=== PATIENT | male | born 1960 | race Caucasian/White ===

== ENCOUNTER 2019-05-28 04:24 | Inpatient (IN) | payer OTHER ==
[2019-05-28] VITALS (51 sets, daily range): BP systolic 94–161; BP diastolic 49–98
[~2019-05-28] VITALS: Ht 177.8 cm; Wt 104.8 kg
[~2019-05-28 04:24] MED LIST: ALDACTONE25 MG PO; ASPIR 8181 M1 PO; CLONIDINE0.1 PO; GABAPENTIN 100100 MG PO; LANTUS SOL100 UNIT/1 SQ; LEVEMIR SUBQ; LIPITOR40 MG PO; NORVASC5 MG PO; NOVOLOG100 UNIT/1 SUBQ; PRINIVIL20 MG PO; TENORMIN25 MG PO
[2019-05-28 04:59] LABS: PCO2 27.7 mmHg (35.0-45.0); pH 7.352 (7.340-7.450)
[2019-05-28 05:01] LABS: PO2 58.9 mmHg (75.0-100.0)
[2019-05-28 05:19] LABS: HEMATOCRIT 36.2 % (42.0-52.0); HEMOGLOBIN 12.2 gm/dL (14.0-18.0); MCH 25.9 pg (26.0-34.0); MCHC 33.7 g/dL (28.0-37.0); MCV 76.8 fL (80.0-100.0); MPV 8.1 fl. (7.2-11.1); NUCLEATED RBCS 0 /100WBC; PLATELET COUNT* 420 thou/uL (150-400); RBC 4.72 mil/uL (4.50-6.00); RDW-CV 14.7 % (10.5-14.5); WBC 28.9 thou/uL (4.0-11.0)
[2019-05-28 05:45] LABS: INR 1.2; PROTIME 11.8 Seconds (9.20-11.50)
[2019-05-28] MEDS ORDERED: GVOKE SYRI1 MG/0.2 M SUBQ (05:45)
[2019-05-28] MEDS ORDERED: FUROSEMIDE 40 M40 MG PO (05:46)
[2019-05-28] MEDS ORDERED: HUMALOG100 UNIT/1 SUBQ (05:46)
[2019-05-28] MEDS ORDERED: PROCARDIA XL60 MG PO (05:47)
[2019-05-28] MEDS ORDERED: LANTUS SUBQ (05:47)
[2019-05-28] MEDS ORDERED: PROTONIX40 M2 PO (05:48)
[2019-05-28] MEDS ORDERED: HYDRALAZINE 5050 MG PO (05:48)
[2019-05-28] MEDS ORDERED: MIRALAX119 GM PO (05:49)
[2019-05-28] MEDS ORDERED: COREG25 M1 PO (05:49)
[2019-05-28] MEDS ORDERED: MELATONIN3 M1 PO (05:50)
[2019-05-28] MEDS ORDERED: GLUCOSE GEL38 GM PO (05:50)
[2019-05-28 05:51] LABS: CALCIUM 8.8 mg/dL (8.5-10.1); CREATININE 1.9 mg/dL (0.6-1.3); POTASSIUM 3.7 mmol/L (3.5-5.1)
[2019-05-28 06:02] LABS: ALBUMIN 3.2 g/dL (3.4-5.0); TOTAL BILIRUBIN 0.4 mg/dL (<0.1-1.0); TOTAL PROTEIN 7.2 g/dL (6.4-8.2)
[2019-05-28 06:35] LABS: URINE BILIRUBIN NEGATIVE (Negative); URINE BLOOD NEGATIVE (Negative); URINE CLARITY CLEAR; URINE COLOR YELLOW; URINE GLUCOSE-RANDOM NEGATIVE (Negative); URINE KETONES NEGATIVE (Negative); URINE LEUKOCYTES-REFLEX NEGATIVE (Negative); URINE NITRITE-REFLEX NEGATIVE (Negative); URINE PROTEIN TRACE (Negative); URINE UROBILINOGEN 0.2 E.U./dl (0.2-1.0)
[2019-05-28 06:44] LABS: ABSOLUTE NEUTROPHILS 24.9 thou/uL (1.6-8.1)
[2019-05-28 06:45] LABS: PLATELET ESTIMATE INCREASED
[2019-05-28 06:48] LABS: BE -5.3 mmol/L (-2 to +3); PCO2 36.9 mmHg (35.0-45.0); pH 7.346 (7.340-7.450)
[2019-05-28 06:51] LABS: PO2 58.4 mmHg (75.0-100.0)
[2019-05-28 07:20] LABS: INFLUENZA A ANTIGEN Negative (Negative); INFLUENZA B ANTIGEN Negative (Negative)
[2019-05-28 08:47] LABS: AMP/METHAMP Negative (Negative); BARBITURATES Negative (Negative); BENZODIAZEPINES POSITIVE (Negative); COCAINE Negative (Negative); METHADONE Negative (Negative); OPIATES Negative (Negative); PCP Negative (Negative); THC Negative (Negative)
--- NOTE | 2019-05-28 12:33 | 2DMMODE ---
[place] [id number] 2 D/M-MODE ECHOCARDIOGRAM Name: MAGDALENAMACHELLE RAY Room: [address] [place] [facility] [place] [id number] Admission: 05/28/19 Attend Phys: Merlin Miranda, Discharge: Date of : 60 Date of Service: 05/28/19 1232 Report #: [id number] THIS REPORT FOR: //name// APPROVED REPORT Study performed: 05/28/2019 11:40:28 EXAM: Comprehensive 2D, Doppler, and color-flow Echocardiogram Patient Location: In-Patient Room #: 003 Status: routine BSA: 2.13 HR: 72 bpm BP: 149/73 mmHg Rhythm: NSR Other Information Study Quality: Excellent Indications Dyspnea 2D Dimensions IVSd: 17.76 (7-11mm) LVOT Diam: 21.17 (18-24mm) LVDd: 49.66 mm PWd: 15.25 (7-11mm) Ascending Ao: 36.17 (22-36mm) LVDs: 32.26 (25-40mm) Aortic Root: 34.09 mm Volumes Left Atrial Volume (Systole) LA ESV Index: 31.40 mL/m2 Aortic Valve AoV Peak Cristino.: 2.05 m/s AO Peak Gr.: 16.86 mmHg LVOT Max P.48 mmHg AO Mean Gr.: 7.94 mmHg LVOT Mean P.25 mmHg LVOT Max V: 1.69 m/s AO V2 VTI: 34.03 cm LVOT Mean V: 1.06 m/s LOVE (VTI): 3.10 cm2 LVOT V1 VTI: 29.97 cm Mitral Valve E/A Ratio: 1.22 MV Decel. Time: 215.48 ms MV E Max Cristino.: 1.03 m/[place] [id number] 2 D/M-MODE ECHOCARDIOGRAM Name: MACHELLE NICHOLS Room: [address] IN ..#: [id number] Admission: 05/28/19 Attend Phys: Merlin Miranda, Discharge: Date of : 60 Date of Service: 05/28/19 1232 Report #: [id number] MV PHT: 62.49 ms MVA (PHT): 3.52 cm2 TDI E/Lateral E': 9.36 E/Medial E': 9.36 Medial E' Cristino.: 0.11 m/s Lateral E' Cristino.: 0.11 m/s Pulmonary Valve PV Peak Cristino.: 1.38 m/s PV Peak Gr.: 7.56 mmHg Tricuspid Valve RAP Estimate: 5.00 mmHg TR Peak Gr.: 23.50 mmHg RVSP: 28.00 mmHg PA Pressure: 28.00 mmHg Left Ventricle The left ventricle is normal size. There is normal LV segmental wall motion. Mild concentric left ventricular hypertrophy. Left ventricular systolic function is normal. The left ventricular ejection fraction is within the normal range. LVEF is 65%. Right Ventricle The right ventricle is normal size. The right ventricular systolic function is normal. Atria Left atrium is mildly dilated. The right atrium size is normal. Aortic Valve Mild aortic valve sclerosis. No aortic regurgitation is present. There is no aortic valvular stenosis. Mitral Valve The mitral valve is normal in structure. Trace mitral regurgitation. No evidence of mitral valve stenosis. Tricuspid Valve The tricuspid valve is normal in structure. Mild tricuspid regurgitation. estimated pa pressure 30 mm Hg Pulmonic Valve The pulmonary valve is normal in structure. There is no pulmonic [place] [id number] 2 D/M-MODE ECHOCARDIOGRAM Name: SAVANNAHMACHELLE MCCABE HOWIE Room: [address] [place] [facility] [place] [id number] Admission: 05/28/19 Attend Phys: Merlin Miranda, Discharge: Date of : 60 Date of Service: 05/28/19 1232 Report #: [id number] Great Vessels The aortic root is normal in size. IVC is normal in size and collapses >50% with inspiration. Pericardium Trace pericardial effusion. <Conclusion> Mild concentric left ventricular hypertrophy. LVEF is 65%. Left atrium is mildly dilated. Mild aortic valve sclerosis. Mild tricuspid regurgitation. estimated pa pressure 30 mm Hg <ELECTRONICALLY SIGNED> By: Steve Glaser MD, FACC 05/28/19 1232 1232 123 Steve Glaser MD, FACC /INF
[2019-05-28 13:24] LABS: BE -7.6 mmol/L (-2 to +3); PCO2 24.7 mmHg (35.0-45.0); PO2 101.9 mmHg (75.0-100.0); pH 7.414 (7.340-7.450)
[2019-05-28 14:07] LABS: CALCIUM 8.2 mg/dL (8.5-10.1); CREATININE 1.8 mg/dL (0.6-1.3); POTASSIUM 3.3 mmol/L (3.5-5.1)
--- NOTE | 2019-05-28 17:10 | NUR ---
RECEIVED REPORT FROM ED AND ASSUMED CARE OF PT @ 4346.PT IS INTUBATED PER ORDERED SETTINGS AND SEDATED PER TITRATION.VSS.PT SCREENED SEPSIS POSTIVE-PROTOCOL FOLLOWED.NO APPARENT PAIN.RIGHT AC IV INFILTRATED.RIGHT IJ CENTRAL LINE PLACED BY PULMONARY DOCTOR WITH XRAY CONFIRMATION.IV ANTIBIOTICS GIVEN.MALAVE SECURE AND PATENT WITH ADEQUATE OUTPUT.Q2 HOUR POSITION CHANGES COMPELTED.UA SENT.MRSA SWAB COLLECTED.LOWER EXTERMITY US COMPELTED.ECHO COMPLETED.POTASSIUM AND MAGNESIUM REPLACED.WILL CONTINUE TO MONITOR FOR DURATION OF SHIFT.
[2019-05-29] VITALS (30 sets, daily range): BP systolic 119–165; BP diastolic 50–75
[2019-05-29 01:55] LABS: BE -6.6 mmol/L (-2 to +3); PCO2 26.2 mmHg (35.0-45.0); pH 7.427 (7.340-7.450)
[2019-05-29 02:00] LABS: PO2 170.3 mmHg (75.0-100.0)
[2019-05-29 04:16] LABS: HEMATOCRIT 25.8 % (42.0-52.0); MCH 26.2 pg (26.0-34.0); MCHC 33.8 g/dL (28.0-37.0); MCV 77.4 fL (80.0-100.0); MPV 8.1 fl. (7.2-11.1); RBC 3.33 mil/uL (4.50-6.00); RDW-CV 14.5 % (10.5-14.5); WBC 14.8 thou/uL (4.0-11.0)
[2019-05-29 04:26] LABS: HEMOGLOBIN 8.7 gm/dL (14.0-18.0)
[2019-05-29 04:36] LABS: ALBUMIN 2.2 g/dL (3.4-5.0); CREATININE 2.1 mg/dL (0.6-1.3); MAGNESIUM 2.5 mg/dL (1.8-2.4); POTASSIUM 3.7 mmol/L (3.5-5.1); TOTAL BILIRUBIN 0.2 mg/dL (<0.1-1.0)
--- NOTE | 2019-05-29 07:19 | NUR ---
RECEIVED REPORT AND ASSUMED CARE AT 1900. ASSESSMENT COMPLETED CHARTED. BED LOCKED IN LOWEST POSITION, BED ALARM ON. POSITION CHANGED EVERY TWO HOURS, HEELS OFF LOADED. HOURLY ROUNDING COMPLETED AND ALL NEEDS MET
--- NOTE | 2019-05-29 11:00 | NUR ---
PT.ON VENTILATOR. NO FAMILY PRESENT AT THIS TIME. 1500-CALLED Sharmin BLAND. LISTED EMERGENCY CONTACT ON FACE SHEET. SHE SAID SHE RECENTLY HAD A TOE AMPUTATED. PT.'S SON,JAMES, TOOK PT.TO HIS HOUSE IN [place], [place] ,WHEN RELEASED SUNDAY FROM [facility], SINCE SHE CAN'T TAKE CARE OF HIM AT THIS TIME. PT.HAS A WC AND WALKER. DOES NOT HAVE TO USE WC AT THIS TIME. IN NOV. HAD A CVA, WAS ON THE VENT AND IN RENAL FAILURE. SPENT ABOUT 20 DAYS IN HOSPITAL IN [place], THEN SENT TO SNF FOR REHAB. PT.IS LEGALLY BLIND. HAS DM. SHE SAID SHE DID ALOT FOR PT. SHE FED HIM,DRESSED HIM,DROVE HIM PLACES. SHE SAID HE CAN FEED HIMSELF BUT WITH HIS BLINDNESS HE MAKES A REAL MESS. HE CAN GET IN SHOWER AND OUT BY SELF BUT NEEDS HELP WITH DRESSING. SHE FEELS HE MAY NEED TO GO BACK TO SNF AT DISCHARGE IF SON CANNOT TAKE CARE OF HIM. CM WILL MAKE CONTACT WITH SON,TO DISCUSS.
[2019-05-29 11:46] LABS: BE -3.4 mmol/L (-2 to +3); PO2 94.1 mmHg (75.0-100.0); pH 7.423 (7.340-7.450)
--- NOTE | 2019-05-29 12:51 | EKG ---
[place] [address] ELECTROCARDIOGRAM REPORT Name: MACHELLE NICHOLS Room: [address] ADM IN M.R.#: [id number] Admission: 05/28/19 Attend Phys: Merlin Miranda MD Discharge: Date of : 60 Report #: [id number] THIS REPORT FOR: //name// [facility] ED Test Date: 2019-05-28 Test Time: 06:42:15 Pat Name: MACHELLE ZARATESHUESTELLE Department: Room: [facility] Gender: M Electronic Tester: : 1960 Requested By: Thais Johnson Order Number: [id number] MD: Steve Glaser Measurements Intervals [employer] Rate: 94 P: 22 KS: 143 QRS: -1 QRSD: 136 T: 4 QT: 395 QTc: 495 Interpretive Statements Sinus rhythm Right bundle branch block Baseline wander in lead(s) V5,V6 Compared to ECG 05/29/2015 17:48:25 Right bundle-branch block now present ST (T wave) deviation no longer seen Sinus tachycardia no longer present Electronically Signed On 05-29-2019 12:51:30 [employer] by Steve Glaser [email or web address] <ELECTRONICALLY SIGNED> By: Steve Glaser MD, FACC 05/29/19 1251 [id number] Steve Glaser MD, FAC /EPI
[2019-05-29 17:48] LABS: BE -1.3 mmol/L (-2 to +3); PCO2 VENOUS 39.2 mmHg (41.0-51.0); PO2 VENOUS 128.9 mmHg (35.0-45.0)
--- NOTE | 2019-05-29 18:20 | NUR ---
PATIENT REMAINS ON VENT PS NO RATE TOLERATING WELL.INSULIN GTT REMOVED ONCE BG REACHED LESS THAN 200. NOW CONTROLLED WITH SLIDING SCALE. PT REMAINS SEDATED ON PRECIDEX AND PROPOFOL. PT BECOMES ANXIOUS WHEN SEDATION WITHDRAWN. DOES NOT FOLLOW COMMANDS, PROGRESSING SLOWLY.
--- NOTE | 2019-05-29 22:29 | NUR ---
INITAL ASSESMENT COMPLETED AT 1930. PT INTUBATED AND SEDATED ON VENTILATOR. PT IN BILATERAL SOFT WRIST RESTRAINTS TO MAINTAIN ET TUBE, OG TUBE, CENTRAL LINE AND MALAVE. PT ATTEMPTS TO EXTUBATE SELF WHEN RESTRAINTS ARE OFF AND PT IS BEING REPOSITIONED.
[2019-05-30] VITALS (36 sets, daily range): BP systolic 152–209; BP diastolic 58–90
[2019-05-30 04:09] LABS: BE -6.2 mmol/L (-2 to +3); PCO2 VENOUS 36.9 mmHg (41.0-51.0); PO2 VENOUS 58.9 mmHg (35.0-45.0)
[2019-05-30 04:28] LABS: CALCIUM 7.5 mg/dL (8.5-10.1); CREATININE 1.9 mg/dL (0.6-1.3); MAGNESIUM 2.1 mg/dL (1.8-2.4); POTASSIUM 3.4 mmol/L (3.5-5.1); TOTAL BILIRUBIN 0.2 mg/dL (<0.1-1.0); TOTAL PROTEIN 5.5 g/dL (6.4-8.2)
[2019-05-30 04:36] LABS: HEMATOCRIT 28.8 % (42.0-52.0); HEMOGLOBIN 9.6 gm/dL (14.0-18.0); MCH 25.9 pg (26.0-34.0); MCHC 33.3 g/dL (28.0-37.0); MCV 77.7 fL (80.0-100.0); MPV 8.7 fl. (7.2-11.1); RBC 3.71 mil/uL (4.50-6.00); RDW-CV 14.7 % (10.5-14.5); WBC 16.2 thou/uL (4.0-11.0)
--- NOTE | 2019-05-30 07:47 | NUR ---
7583 assumed care of patient. please see documented assessment. PT IS ON PRESSURE SUPPORT. GOAL IS TO EXTUBATE.
[2019-05-30 09:40] LABS: BE -4.4 mmol/L (-2 to +3); PCO2 33.4 mmHg (35.0-45.0); PO2 101.4 mmHg (75.0-100.0)
--- NOTE | 2019-05-30 10:01 | NUR ---
DR CHANG AND DR BORRERO HERE. HAS BEEN OFF PROPOFOL FOR ONE HOUR AND PRECEDEX DECREASED.
--- NOTE | 2019-05-30 10:40 | NUR ---
ICU ROUNDS: PT.EXTUBATED THIS AM. ABLE TO SPEAK WITH NURSE. SPEECH SOUNDS SLURRED. PREVIOUS HX OF CVA. JONATHAN KELLER SAID PT.'S SON CALLED AND IS AWARE PT.IS OFF THE VENTILATOR. CM WILL FOLLOW.
--- NOTE | 2019-05-30 10:54 | NUR ---
1010 EXTUBATED TO 4LPM NASAL CANNULA. OG REMOVED. RESTRAINTS OFF. SEDATION OFF
--- NOTE | 2019-05-30 11:58 | NUR ---
PT PULLED OUT CENTRAL LINE. DR CHANG INFORMED
--- NOTE | 2019-05-30 13:44 | NUR ---
1215 MIDLINE PLACED BY INFUSION NURSE
--- NOTE | 2019-05-30 13:56 | CON ---
[address] [address] CONSULTATION Name: MACHELLE NICHOLS Room: [address] IN M.R.#: [id number] Admission: 05/28/19 Attend Phys: Merlin Miranda MD Discharge: Date of : 60 Report #: [id number] THIS REPORT FOR: //name// CC: [facility] physician/PCP Merlin Miranda DATE OF SERVICE: 05/28/2019 CARDIOLOGY CONSULTATION HISTORY OF PRESENT ILLNESS: The patient is a 58-year-old single white male, who I was asked to see in the hospital today after he developed shortness of breath. The patient has an extensive and complicated past medical history. Unfortunately, there are no old records here at [facility]. The patient primarily gets his care in [place], [place]. He has a long history of smoking and diabetes. I obtained some of the history from his son who I called today. The patient has a previous history of stroke with residual hemiplegia. He uses a walker occasionally. He also has a history of PAD and has previous toe amputations. He has been diagnosed with congestive heart failure in the past. He was recently admitted to [facility] in [place] for about a month with multiple medical problems. He then went to rehabilitation. Two days ago, the son took him home to live. The patient apparently was doing well with no recent fever or cough. He went to bed last night. During the middle of night, the brother noticed that the patient was having agonal breathing. Paramedics were called. He was confused and agitated. He was brought to [facility] last night and intubated. I was asked to see him for further evaluation and treatment. PAST MEDICAL HISTORY: Otherwise significant for hip surgery. Apparently last month, he was on dialysis for a period of time at the [facility]. MEDICATIONS: Include lisinopril, aspirin, Lipitor, insulin, Lasix, nifedipine, Protonix, hydralazine, carvedilol. He apparently in the past had been on atenolol, amlodipine, clonidine, and spironolactone, which were all discontinued. ALLERGIES: He has no known drug allergies. SOCIAL HISTORY: He is , lives with girlfriend in [place], [place]. He is on disability. Quit smoking a year ago. No alcohol abuse. REVIEW OF SYSTEMS: He has had no history of GI bleeding, liver disease, cancer, psychiatric illness. PHYSICAL EXAMINATION: GENERAL: Revealed a middle-aged male, lying in bed. [place] [address] CONSULTATION Name: MACHELLE NICHOLS Room: [address] IN ..#: [id number] Admission: 05/28/19 Attend Phys: Merlin Miranda MD Discharge: Date of : 60 Report #: [id number] VITAL SIGNS: Blood pressure is 120/60, pulse 70, he is afebrile. HEENT: He was anicteric. Conjunctivae are pink. Mucous membranes appear dry. NECK: Veins do not appear distended. CHEST: Decreased breath sounds. CARDIOVASCULAR: Regular rate and rhythm. ABDOMEN: Soft. EXTREMITIES: Had no edema. Dorsalis pedis pulse cannot be palpated. SKIN: Cool and dry. NEUROLOGIC: Nonfocal. RADIOLOGICAL DATA: His ECG showed a sinus rhythm with an incomplete right bundle-branch block. His workup last night, he had a portable chest x-ray that showed the patient was intubated. There was cardiomegaly. Vasculature appeared within normal limits. CT scan of the head was performed without contrast that showed no acute abnormality. Venous duplex scan of his legs showed no DVT. LABORATORY DATA: Sodium 142, BUN 31, creatinine 1.9. His troponin 0.08. BNP 906. His white blood cell count 28.9, hemoglobin 12.2. IMPRESSION AND RECOMMENDATIONS: 1. Acute respiratory distress. Reason unclear. No evidence of pneumonia, COPD. Possible pulmonary embolus. 2. History of cardiomyopathy. The patient has been on an LALA inhibitor and beta michael. No longer on Aldactone because of chronic kidney disease. I will attempt to obtain records from the [facility]. 3. Diabetes. 4. Hypertension. The patient has been on an LALA inhibitor, calcium michael and beta michael. 5. Hyperlipidemia. The patient is on a statin drug. 6. Tobacco abuse. The patient quit a year ago. 7. Peripheral arterial disease with previous toe amputations. 8. Previous stroke with hemiparesis. <ELECTRONICALLY SIGNED> By: Steve Glaser MD, FACC 05/30/19 1356 1101 [id number] Glaser MD, FACC /nt
--- NOTE | 2019-05-30 16:19 | NUR ---
1530 PASSED BEDSIDE SWALLOW EVALUATION BY SPEECH THERAPIST.
--- NOTE | 2019-05-30 17:21 | NUR ---
PATIENT PROGRESSING TOWARDS GOALS. OFF SEDATION AND RESTRAINTS.EXTUBATED THIS MORNING. PASSED SWALLOW EVALUATION.ORIENTED X 2 BUT HAS VISUAL LIMITATIONS. HAS NOT BEEN ABLE TO USE CALL LIGHT. ANTIHYPERTENSIVES STARTED. SON HAS CALLED.
[2019-05-31] VITALS (23 sets, daily range): BP systolic 127–214; BP diastolic 49–101
--- NOTE | 2019-05-31 07:26 | NUR ---
Pt alert, oriented to person. States he is at a hospital in [place]. Hard of hearing and legally blind. VSS. Multiple loose stools. Fecal management system placed; 700 ml liquid stool out since placed at 2300. Good output from marques. Pt called out multiple times stating he needed to urinate; pt reminded multiple times that he has marques draining bladder. O2 decreased from 2L to RA at 0600; SaO2 upper 90s overnight. Will continue to monitor.
[2019-05-31 12:50] LABS: HEMATOCRIT 27.6 % (42.0-52.0); HEMOGLOBIN 9.3 gm/dL (14.0-18.0); MCH 26.1 pg (26.0-34.0); MCHC 33.8 g/dL (28.0-37.0); MCV 77.1 fL (80.0-100.0); MPV 8.6 fl. (7.2-11.1); NUCLEATED RBCS 0 /100WBC; PLATELET COUNT* 317 thou/uL (150-400); RBC 3.58 mil/uL (4.50-6.00); RDW-CV 14.6 % (10.5-14.5); WBC 21.2 thou/uL (4.0-11.0)
[2019-05-31 13:04] LABS: ALBUMIN 1.9 g/dL (3.4-5.0); CALCIUM 7.7 mg/dL (8.5-10.1); CREATININE 1.8 mg/dL (0.6-1.3); TOTAL BILIRUBIN 0.3 mg/dL (<0.1-1.0); TOTAL PROTEIN 5.5 g/dL (6.4-8.2)
[2019-05-31 13:06] LABS: POTASSIUM 3.1 mmol/L (3.5-5.1)
[2019-05-31 13:27] LABS: ABSOLUTE LYMPHOCYTES 0.2 thou/uL (0.8-5.3); PLATELET ESTIMATE ADEQUATE
--- NOTE | 2019-05-31 19:37 | NUR ---
PATIENT ALERT COMMUNICATES WELL UP IN CHAIR TAKING PO WELL.WORKED WITH PT AND OT. DENIES PAIN OR SOA.
[2019-06-01] VITALS (12 sets, daily range): BP systolic 98–158; BP diastolic 43–90
[2019-06-02] VITALS (10 sets, daily range): BP systolic 132–167; BP diastolic 63–74
--- NOTE | 2019-06-02 04:38 | NUR ---
VITALS STABLE, AFEBRILE. REMAINS ON RA WITH SPO2 >95%. DENIES PAIN/DISCOMFORT. PT SLEPT THROUGH THE NIGHT. WILL CONTINUE MONITORING.
--- NOTE | 2019-06-02 10:20 | NUR ---
PT.IN BED. YELLS OUT AT TIMES. IN C.DIFF PRECAUTIONS. TEAM SAID PT.STILL HAVING LOOSE STOOLS. HAS BEEN UP IN CHAIR WITH PT. 05/31. CM LEFT FOR PTS SON,TO CALL CM TO DISCUSS DISCHARGE PLANNING.
[2019-06-02 11:16] LABS: HEMATOCRIT 25.5 % (42.0-52.0); HEMOGLOBIN 8.8 gm/dL (14.0-18.0); MCHC 34.7 g/dL (28.0-37.0); MCV 77.9 fL (80.0-100.0); MPV 8.3 fl. (7.2-11.1); NUCLEATED RBCS 0 /100WBC; PLATELET COUNT* 291 thou/uL (150-400); RBC 3.27 mil/uL (4.50-6.00); RDW-CV 14.6 % (10.5-14.5); WBC 9.7 thou/uL (4.0-11.0)
[2019-06-02 11:29] LABS: ALBUMIN 1.9 g/dL (3.4-5.0); CALCIUM 7.5 mg/dL (8.5-10.1); CREATININE 1.9 mg/dL (0.6-1.3); POTASSIUM 4.1 mmol/L (3.5-5.1); TOTAL BILIRUBIN 0.1 mg/dL (<0.1-1.0); TOTAL PROTEIN 5.1 g/dL (6.4-8.2)
[2019-06-02 11:56] LABS: ABSOLUTE LYMPHOCYTES 1.3 thou/uL (0.8-5.3); ABSOLUTE MONOCYTES 0.5 thou/uL (0.0-1.2); METAMYELOCYTES 1 %; PLATELET ESTIMATE ADEQUATE
[2019-06-02 11:57] LABS: HYPOCHROMASIA 2+; MICROCYTES 2+; TOXIC GRANULATION 1+
[2019-06-03 02:59] VITALS: BP 161/70
--- NOTE | 2019-06-03 04:46 | NUR ---
VITALS STABLE, AFEBRILE. PT ORIENTED BUT VERY FORGETFUL AT TIMES. COMPLAINS OF PAIN IN HIS BOTTOM FROM THE FECAL MANAGEMENT SYSTEM. WANTS TO GO HOME. OTHERWISE UNEVENTFUL NIGHT. WILL CONTINUE MONITORING.
--- NOTE | 2019-06-03 05:37 | NUR ---
PT WOKE UP FROM HIS SLEEP AT THIS TIME DISORIENTED. HE WAS ONLY ABLE TO TELL ME HIS NAME AND . HE TELLS ME HE IS AT HOME BUT KEEPS YELLING "NURSE" THROUGH THE NIGHT. OTHERWISE APPROPRIATE AND PLEASANT.
--- NOTE | 2019-06-03 07:39 | CON ---
[address] [address] CONSULTATION Name: MACHELLE NICHOLS Room: [address] IN M.R.#: [id number] Admission: 05/28/19 Attend Phys: Merlin Miranda MD Discharge: Date of : 60 Report #: [id number] THIS REPORT FOR: //name// CC: [facility] physician/PCP Merlin Miranda DATE OF SERVICE: 06/02/2019 INFECTIOUS DISEASE CONSULTATION ATTENDING PHYSICIAN: Dr. Babin. REASON FOR EVALUATION: Confirm C. diff positive stools. Clinical picture of colitis as well as altered mental status, probably degree of pneumonitis as well. HISTORY OF PRESENT ILLNESS: Chart reviewed, patient examined. This is a 58-year-old with known history of diabetes mellitus type 2, COPD, notes he quit smoking roughly a year ago, has had a previous stroke as well. Apparently was found unresponsive in the early a.m., felt to be increased breathing difficulty, on examination was found to have an elevated lactic acid at 5.9. Positive drug screen for benzodiazepines, markedly elevated white count of 28.9, pO2 of 39.2. Chest x-ray, question of some acute on chronic changes, suspected pneumonitis, was also having diarrhea, was confirmed to have positive C. diff study, has been on broad-spectrum therapy with piperacillin, tazobactam as well as oral vancomycin, levofloxacin, complicating his situation. He has profound hearing deficits as well. He denies any significant pain or discomfort. He states he is ready to go home. He is maintained on room air oxygen at this point, likely at least mildly encephalopathic, however. ALLERGIES: None known. CURRENT MEDICATIONS: Include vancomycin orally 250 IV q. 12, prednisone 40 daily, insulin glargine, hydralazine, lisinopril, insulin lispro, metoprolol, levofloxacin. PAST MEDICAL HISTORY: As described above, has known history of COPD, diabetes mellitus type 2 insulin requiring and complicated by peripheral neuropathy, has vasculopathy, previous stroke, hypertension, insomnia, reflux. SOCIAL HISTORY: Former smoker. No ethanol. No illicit drug use. FAMILY HISTORY: Noncontributory. REVIEW OF SYSTEMS: Somewhat limited, otherwise unremarkable. Denies [place] [address] CONSULTATION Name: MACHELLE NICHOLS Room: [address]#: [id number] Admission: 05/28/19 Attend Phys: Merlin Miranda MD Discharge: Date of : 60 Report #: [id number] PHYSICAL EXAMINATION: GENERAL: Appears somewhat chronically ill, undernourished. He is lethargic to somnolent. VITAL SIGNS: Temperature 97.6, pulse 64, respirations 14, blood pressure of 149/63. SKIN: Warm, dry, no rashes. HEENT: Normocephalic. Extraocular muscles intact. NECK: Supple. LUNGS: He has got some end expiratory wheezes, few scattered crackles at the bases. HEART: Regular. I do not appreciate murmur. ABDOMEN: Soft, nontender, nondistended. EXTREMITIES: No cyanosis. GENITOURINARY AND RECTAL: Deferred. LABORATORY DATA: Blood cultures sterile thus far. Legionella pneumococcal antigens were negative. C. diff by PCR was positive. CBC from showed a white count of 21.2, H and H 9.3 and 27.6, platelets of 319. Electrolytes: Sodium 139, potassium 3.1, chloride 106, bicarbonate is 20, anion gap of 13, BUN and creatinine 40 and 1.8. LFTs unremarkable. Albumin 1.9, total protein 5.5. Prealbumin 16.5. Chest x-ray on showed cardiomegaly, lower lobe atelectasis bilaterally, subsegmental infiltrate or pneumonia, medial left lower lung. ASSESSMENT AND PLAN: Clostridium difficile colitis. We will continue empiric therapy with oral vancomycin based on the recorded information. Seemingly the degree of diarrhea has slowed. Secondly, I think he has pneumonitis. We will adjust antimicrobial therapy, utilize cefepime in this setting. He remains quite tenuous. He is undernourished as well. We will try to optimize his nutritional status and certainly some limiting factor in this case as well. Monitor expectantly. Certainly at risk for nosocomial related infectious complications and introduce incentive spirometry as well. <ELECTRONICALLY SIGNED> By: Edwin Becker MD 06/03/19 0739 1114 1221Edwin Becker MD /nt
--- NOTE | 2019-06-03 07:54 | NUR ---
2684 ASSUMED CARE OF PATIENT. PLEASE SEE DOCUMENTED ASSESSMENT. PT IS TELE IN ICU. SPECIAL CONTACT P[RECAUTIONS
[2019-06-03 08:00] VITALS: BP 145/74
[2019-06-03 12:00] VITALS: BP 179/79
--- NOTE | 2019-06-03 12:00 | NUR ---
CM SPOKE WITH PT'S SON,JAMES ON PHONE. DISCUSSED DISCHARGE PLANNING. TOLD HIM RECOMMEENDED EITHER REHAB OR SNF. JAMES WOULD PREFER SNF,SOMEWHERE CLOSE TO HIM SO HE CAN GO SEE HIM AFTER HE GETS OFF WORK,ETC. HE LIVES IN [place]. HE SAID [facility] WOULD BE CLOSEST. DISCUSSED SNFS IN AREA THAT ACCEPT PT.'S INSURNACE. HE CHOSE [facility]. HE SEEMED TO KNOW OF FACILITY. FAXED REFERRAL TO [facility] [phone]. WILL NEED INSURNACE AUTH TO GO TO SNF.
--- NOTE | 2019-06-03 12:15 | NUR ---
WALKED WITH PT ABOUT 20 FEET. BATHED. STOOLS CONTINUE LOOSE
--- NOTE | 2019-06-03 12:58 | NUR ---
Nutrition: Pt assessed for LOS. Admitted with AMS. Sepsis 2/2 PNA, ?aspiration. Tele status. Albumin 1.9, prealb 29, BG 200s. Eating well on CHO controlled diet. RX: insulin, solumedrol, vanc. Believe getting ST eval. No nutrition interventions are needed at this point in time. GOALS: continue good po intake, tight BG control. Mild risk.
[2019-06-03 16:00] VITALS: BP 187/74
--- NOTE | 2019-06-03 16:54 | NUR ---
PATIENT PROGRESSING TOWARDS GOALS. WORKED [facility] THERAPIES. UP TO RECLINER AND WALKED IN ROOM WITH ASSIST OF TWO AND WALKER. APPETITE GOOD. ORIENTED BUT FORGETFUL. IS VISUALLY AND HEARING IMPAIRED. GIRLFRIEND CALLED AND PATIENT WAS ABLE TO TALK TO HER ON PHONE. PT IS TELE STATIS IN THE ICU. CONTINUES WITH LIQUID STOOLS.
[2019-06-03 20:51] VITALS: BP 176/67
[2019-06-04] VITALS (7 sets, daily range): BP systolic 137–182; BP diastolic 47–80
--- NOTE | 2019-06-04 04:18 | NUR ---
ASSUMED CARE AT 1900H, ON RA AND TOLERATED.PT WAS FORGETFUL AT TIMES.HE WANTED TO GO HOME.ORIENT PT ALL THE TIME.NO DISTRESS NOTED.PRN PAIN MED GIVEN. CONTINUE MONITORING AND TOWARD GOALS.
[2019-06-04 12:29] LABS: ABSOLUTE EOSINOPHILS 0.1 thou/uL (0.0-0.7); ABSOLUTE MONOCYTES 1.3 thou/uL (0.0-1.2); ABSOLUTE NEUTROPHILS 11.6 thou/uL (1.6-8.1); BASOPHILS 0.2 %; HEMATOCRIT 28.8 % (42.0-52.0); HEMOGLOBIN 9.3 gm/dL (14.0-18.0); LYMPHOCYTES 7.2 %; MCH 25.5 pg (26.0-34.0); MCHC 32.5 g/dL (28.0-37.0); MCV 78.5 fL (80.0-100.0); MONOCYTES 9.5 %; MPV 8.5 fl. (7.2-11.1); NUCLEATED RBCS 0 /100WBC; PLATELET COUNT* 317 thou/uL (150-400); POLYS 82.1 %; RBC 3.67 mil/uL (4.50-6.00); RDW-CV 14.9 % (10.5-14.5); WBC 14.2 thou/uL (4.0-11.0)
--- NOTE | 2019-06-04 12:42 | NUR ---
FECAL TUBE SYSTEM OUT. PT HAD A SMALL, LOOSE BM POST TUBE OUT.
[2019-06-04 12:49] LABS: ALBUMIN 2.2 g/dL (3.4-5.0); CALCIUM 7.7 mg/dL (8.5-10.1); CREATININE 1.4 mg/dL (0.6-1.3); MAGNESIUM 1.8 mg/dL (1.8-2.4); POTASSIUM 4.5 mmol/L (3.5-5.1); TOTAL BILIRUBIN 0.2 mg/dL (<0.1-1.0)
--- NOTE | 2019-06-04 18:15 | NUR ---
PT ALERT BUT CONFUSED AND FORGETFUL. FREQUENT REORIENTATION PROVIDED, DOES NOT USE THE CALL LIGHT. MALAVE'S CATH OUT. EDUCATION MACHINING ASSOCIATE LIGHT, FALL PRECAUTIONS AND URINAL USE PROVIDED FREQUENTLY. PT PEED ON FLOOR ONCE, TRIED CALLING FOR HELP THE NEXT TIME. ATE 80-90% OF HIS MEALS, NEEDS HELP FEEDING. GOOD URINE OUTPUT. NO BM LATER IN THE DAY. PT WALKED FEW STEPS WITH THE HELP OF A WALKER, MIN ASSIT x1. CONTACT PRECAUTIONS CONTD.
[2019-06-05 00:08] VITALS: BP 147/63
[2019-06-05 03:45] VITALS: BP 129/69
--- NOTE | 2019-06-05 05:05 | NUR ---
ASSUMED CARE AT 1900H,ON RA AND TOLERATED.STILL FORGETFUL AND ACCORDING TO HIM, HE FEELS STRONGER.PT URINATING WELL AND PASSING LOOSE STOOLS.HE STILL WANTED TO GO HOME NOT IN A FACILITY.PRN MED FOR HTN GIVEN.CONTINUE MONITORING AND TOWARD GOALS.
[2019-06-05 07:55] VITALS: BP 150/67
--- NOTE | 2019-06-05 10:59 | NUR ---
[facility] WAS OFF . CONTACTED HER THIS AM. SHE DID NOT RECEIVE REFERRAL TO HER EMAIL ON . REFAXED INFORMATION TO HER THIS AM [phone]. SHE WILL REVIEW AND WILL NEED TO GET INSURANCCE AUTHORIZATION. PT.WANTING TO GO HOME,ALTHOUGH STAFF REMINDS HIM HIS S.O.CANNOT CARE FOR HIM AT THIS TIME, DUE TO HER RECENT SURGERY. ALSO SON, WORKS AND CANNOT LEAVE HIM ALONE AT HOME.
[2019-06-05 13:11] VITALS: BP 167/64
--- NOTE | 2019-06-05 15:00 | NUR ---
[facility] CAME TO SEE PT. SHE SAID THEY CAN ACCEPT PT.MEDICALLY. WHEN TRYING TO GET INSURANCE AUTH, ARAM, SAID NORMALLY THEY CAN TAKE [facility]. BUT PT.'S PARTICULAR PLAN IS OUT OF NETWORK FOR THEM AND [facility]. HIS OON BENEFIT WOULD MAKE HIM RESPONSIBLE FOR 50% OF HIS SNF BILL. ATTEMPTING TO FIND OTHER FACILITIES IN NETWORK FOR PT.
--- NOTE | 2019-06-05 15:52 | NUR ---
PT SAT IN A CHAIR FOR 2 HRS, UP BY ASSIST x1, USES WALKER. FREQUENT REORIENTATION AND EDUCATION PROVIDED. MAX ASSISTANCE PROVIDED ON FEEDING. BM x2 THIS SHIFT, CALLS AND SHOUTS FOR HELP. VSS. REPORT GIVEN TO JONATHAN SIERRA, TELE.
[2019-06-05 16:00] VITALS: BP 160/69
--- NOTE | 2019-06-05 16:52 | NUR ---
PT TRANSFERRED TO ROOM 230 AT 1545 VIA WHEELCHAIR. ALL BELONGINGS WERE BROUGHT WITH PT. TELE MONITOR APPLIED. PT GIVEN SANDWICH TRAY, URINAL AND ICE WATER. CALL LIGHT IN REACH, WITHIN VIEW OF NURSES STATION AND BED ALARM SET
--- NOTE | 2019-06-05 18:26 | NUR ---
AGREE WITH PREVIOUS ASSESSMENT
[2019-06-05 20:00] VITALS: BP 139/55
[2019-06-06 00:38] VITALS: BP 144/65
[2019-06-06 04:00] VITALS: BP 163/79
--- NOTE | 2019-06-06 05:07 | NUR ---
ASSUMED PT CARE AT APPROX 1930. PT IS AWAKE AND ORIENTED-FORGETFUL AT TIMES. VSS ON ROOM AIR. CNC SERVICE TECHNICIAN IN PLACE TRACING SR/SB. ASSESSMENT DONE AND CHARTED. PT IS ABLE TO SLEEP MOST OF THE NIGHT. CALL LIGHT WITHIN REACH. HIGH FALL PRECAUTIONS IN PLACE. HOURLY ROUNDING DONE FPR PT SAFETY.
[2019-06-06 08:00] VITALS: BP 136/62
--- NOTE | 2019-06-06 09:58 | NUR ---
FAXED REFERRAL TO [facility]. LEFT VM MESSAGE WITH YADIRA/INTAKE TO CONTACT ERASMO MILLS OR MYSELF REGARDING POSSIBLE PLACEMENT TODAY.
[2019-06-06 12:00] VITALS: BP 174/78
--- NOTE | 2019-06-06 14:28 | NUR ---
CONTINUE TO FOLLOW, SPOKE WITH [facility] AGAIN AND THEN HERMELINDO THERE. THEY HAVE ACCEPTED PT CLINICALLY BUT AWAITING INSURANCE AUTH. PT'S INSURANCE PLAN IS PER CALENDAR YEAR SO HE HAS 20 DAYS COVERED AT 100% AVAILABLE. UPDATED PT'S SON/JAMES. HE IS RELEAVED PT WOULD OTHERWISE HAVE TO RETURN HOME WITH HIM AND HIS FAMILY OF 5 WHO LIVE IN A TRAILER WHILE THEIR HOME IS BEING REBUILT AFTER A FLOOD. AUTH IS PENDING. [facility] IS THE [facility] [phone] FACILITY [phone] FAX [phone]
[2019-06-06 16:30] VITALS: BP 141/75
--- NOTE | 2019-06-06 17:35 | NUR ---
ASSUMED PT CARE REPORT RECEIVED FROM NURSE. PT IS AOX4. HARD OF HEARING AND LEGALLY BLIND. DENIES PAIN. WORKED WITH PT/OT THIS AM. OUT OF BED TO CHAIR WITH NURSE AID ASSISTANCE X2.PT IS A FEEDER. AACCUCHECK ACHS. PO MEDICINE GIVEN ORDERED. PT HAD A BOWEL MOVEMENT THIS SHIFT. MAL CONSISTENCY IS SOFT AND NON-FORMED. CALL LIGHT AT REACH. FALL PRECAUTION IN PLACE. WILL CONTINUE TO MONITOR.
[2019-06-06 20:00] VITALS: BP 160/69
[2019-06-07] VITALS: BP 127/52
--- NOTE | 2019-06-07 03:44 | NUR ---
RECEIVED REPORT AND ASSUMED CARE AT 1900. VSS. CARDIAC MONITORING IN PLACE. PT DENIES COMPLAINTS OF PAIN. ASSESSMENT COMPLETED CHARTED. BED LOCKED IN LOWEST POSITION, CALL LIGHT WITHIN REACH, BED ALARM ON. MEDICATION PER EMAR.
[2019-06-07 04:00] VITALS: BP 167/63
[2019-06-07 08:00] VITALS: BP 116/77
[2019-06-07 12:00] VITALS: BP 159/90
--- NOTE | 2019-06-07 15:33 | NUR ---
PT A/OX2,VSS,PT MADE MED/SURG STATUS-HEART MONITOR REMOVED AND RETURNED TO THE NURSES STATION.PT PROGRESSING TOWARDS GOALS.NO C/O PAIN.PT SAT UP IN CHAIR FOR MEALS.PT YELLED OUT OFTEN DUE TO CONFUSION AND VISION IMPAIRMENT.ISOLATION MAINTAINED FOR CDIFF.HOURLY ROUNDING COMPLETED FOR PT SAFETY.CALL LIGHT AND FALL PRECAUTIONS IN PLACE.WILL CONTINUE TO MONITOR FOR DURAITON OF SHIFT.
[2019-06-07 16:00] VITALS: BP 157/63
[2019-06-07 19:45] VITALS: BP 145/61
[2019-06-08 00:18] VITALS: BP 160/65
[2019-06-08 08:00] VITALS: BP 179/77
--- NOTE | 2019-06-08 08:40 | NUR ---
PT SLEPT ON AND OFF THIS SHIFT. ASSESSMENT DOCUMENTED. MEDS GIVEN PER E-AUG. IV PATENT. NO REPORTS OF PAIN. PT REPOSITIONED THIS SHIFT. FALL PRECAUTIONS IN PLACE WILL CONTINUE WITH PLAN OF CARE.
--- NOTE | 2019-06-08 11:00 | NUR ---
PT IS A/O X2,VSS,M/S STATUS.METOPROLOL HELD THIS AM DUE TO SB IN THE 50S.NO C/O PAIN.PT RESTING IN BED WITH CALL LIGHT AND FALL PRECAUTIONS IN PLACE.WILL CONTINUE TO MONITOR FOR DURATION OF SHIFT.
[2019-06-08 11:58] VITALS: BP 173/83
[2019-06-08 16:00] VITALS: BP 143/64
--- NOTE | 2019-06-08 17:41 | NUR ---
VSS.M/S STATUS.NO C/O PAIN.PT PROGRESSING TOWARDS GOALS AND USING CALL LIGHT MORE FREQUENTLY RATHER THAN YELLING OUT.HOURLY ROUNDING COMPLETED FOR PT SAFETY.ISOLATION MAINTAINED FOR CDIFF.CALL LIGHT AND FALL PRECAUTIONS IN PLACE.WILL CONTINUE TO MONITOR FOR DURATION OF SHIFT.
[2019-06-08 20:00] VITALS: BP 144/47
--- NOTE | 2019-06-08 23:53 | NUR ---
ASSUMED PT CARE FROM RN HOMER AT 1915. PT VOICED NO CONCERNS AT START OF SHIFT. M/S STATUS. CALL LIGHT WITHIN REACH. NURSING ASSESSMENT COMPLETED AT START OF SHIFT. PRN PAIN MEDICATION ADMINISTERED, SEE EMAR FOR DOCUMENTATION. AT 2333, REPORT GIVEN TO MILE CASTILLO AND PT TRANSFERED TO ROOM 315. PT MADE AWARE OF ROOM CHANGE AND AGREEABLE.
--- NOTE | 2019-06-09 01:14 | NUR ---
PT TRANSFERRED FROM TELE TO 315 @ 8954. A&O X1-2. AGREES WITH PREVIOUS ASSESSMENTS. ON SPECIAL OCNTACT SIO FOR CDIFF. LEGALLY BLIND. FALL PRECAUTION IN PLACE. CALL LIGHT WITHIN REACH. WILL CONTINUE TO MONITOR.
--- NOTE | 2019-06-09 06:13 | NUR ---
PT ALERT AND ORIENTED TO PERSON. TRANSFERED FROM TELE @5339. PT SLEPT MOST OF SHIFT. OCCASISONALLY WOULD YELL OUT NAMES. PT VOIDS IN URINALS. PT HAD A BM THIS SHIFT. FALL PRECAUTION IN PLACE. CALL LIGHT WITHIN REACH. HOURLY ROUNDINGS MADE. WILL CONTINUE PLAN OF CARE.
[2019-06-09 08:00] VITALS: BP 121/67
[2019-06-09] MEDS ORDERED: VANCOCIN 250 M250 M1 PO (11:21)
[2019-06-09] MEDS ORDERED: CULTURELLE KID1 EAC1 PO (11:34)
[2019-06-09] MEDS ORDERED: METAMUCIL PACK3.4 GM PO (11:35)
[2019-06-09] MEDS ORDERED: PREDNISONE 20 M20 M1 PO (11:36)
[2019-06-09] MEDS ORDERED: NORVASC10 MG PO (11:36)
[2019-06-09] MEDS ORDERED: TOPROL XL25 MG PO (11:38)
[2019-06-09] MEDS ORDERED: LOPRESSOR50 MG PO (11:39)
--- NOTE | 2019-06-09 12:27 | NUR ---
ASSUMED CARE OF PATIENT AT 1200, REPORT RECEIVED FROM JONATHAN RUIZ. AGREE WITH PREVIOUS ASSESSMENT. PATIENT CURRENTLY UP IN CHAIR. DENIES ANY NEEDS. CALL LIGHT WITHIN REACH. FALL PRECAUTIONS IN PLACE. WILL CONTINUE WITH PLAN OF CARE.
[2019-06-09 14:54] VITALS: BP 121/67
--- NOTE | 2019-06-09 15:01 | NUR ---
CONFIRMED WITH SAÚL/LIACHRISTIAN AT [facility] THAT [facility] WAS GOING TO PRACTICE OFFICE ASSOCIATE PATIENT BETWEEN 3:00-3:30 PM TODAY. CONTACTED SON/JAMES AT [phone] AND LIFETIME PARTNER/BALDO OF PATIENTS PLACEMENT AT [facility] AND TIME OF DISCHARGE.
[2019-06-09] MEDS ORDERED: IPRAT-ALBUT 0.5-3 ML INH (15:05)
--- NOTE | 2019-06-09 15:41 | NUR ---
REPORT CALLED CAIO AT [facility]. PATIENT'S MIDLINE REMOVED. PATIENT ASSISTED INTO THE WHEELCHAIR VAN AND DISCHARGED WITH BELONGINGS.
--- NOTE | 2019-06-09 17:02 | NUR ---
LATANYA was informed earlier today that [facility] received auth for pt to dc to SNF today. LATANYA faxed final orders med list to Jil in admissions for [facility]. DC assistant media planner assisted with informing pt family of final dc plan today.
== END 2019-06-09 15:27 | DRG 871 ==
LOC: M.ERS 04:24 → M.TBA-ER 06:54 → M.ICU 06:54 → M.2W 06-05 15:47 → M.3W 06-08 23:38
PROVIDERS: Emergency Medicine; Internal Medicine; Internal Medicine Pulmonary Disease; ADMIT Internal Medicine
PROC: 0BH17EZ Insertion of Endotracheal Airway into Trachea, Via Natural or Artificial Opening (ICD-10-PCS; principal; 2019-05-28)
PROC: B543ZZA Ultrasonography of Right Jugular Veins, Guidance (ICD-10-PCS; 2019-05-28)
PROC: 05HM33Z Insertion of Infusion Device into Right Internal Jugular Vein, Percutaneous Approach (ICD-10-PCS; 2019-05-28)
PROC: 5A1945Z Respiratory Ventilation, 24-96 Consecutive Hours (ICD-10-PCS; 2019-05-28)
DX: A41.9 Sepsis, unspecified organism (principal); J96.01 Acute respiratory failure with hypoxia; N17.0 Acute kidney failure with tubular necrosis; G92 Toxic encephalopathy; I21.A1 Myocardial infarction type 2; J69.0 Pneumonitis due to inhalation of food and vomit; I42.9 Cardiomyopathy, unspecified; A04.72 Enterocolitis due to Clostridium difficile, not specified as recurrent; J44.1 Chronic obstructive pulmonary disease with (acute) exacerbation; I13.0 Hypertensive heart and chronic kidney disease with heart failure and stage 1 through stage 4 chronic kidney disease, or unspecified chronic kidney disease; J44.0 Chronic obstructive pulmonary disease with (acute) lower respiratory infection; I69.359 Hemiplegia and hemiparesis following cerebral infarction affecting unspecified side; E11.40 Type 2 diabetes mellitus with diabetic neuropathy, unspecified; E78.5 Hyperlipidemia, unspecified; E11.51 Type 2 diabetes mellitus with diabetic peripheral angiopathy without gangrene; K21.9 Gastro-esophageal reflux disease without esophagitis; E66.9 Obesity, unspecified; G47.00 Insomnia, unspecified; I50.9 Heart failure, unspecified; E11.22 Type 2 diabetes mellitus with diabetic chronic kidney disease; N18.9 Chronic kidney disease, unspecified; E11.649 Type 2 diabetes mellitus with hypoglycemia without coma; D64.9 Anemia, unspecified; Z79.82 Long term (current) use of aspirin; Z79.4 Long term (current) use of insulin; Z79.899 Other long term (current) drug therapy; Z87.891 Personal history of nicotine dependence; Z89.421 Acquired absence of other right toe(s); Z68.33 Body mass index [BMI] 33.0-33.9, adult; Z23 Encounter for immunization